=== PATIENT | male | born 1950 | race Caucasian/White ===

== ENCOUNTER 2018-09-01 07:05 | Emergency (ER) | END 2018-09-01 08:16 | disposition home or self-care (01) ==

== ENCOUNTER 2019-01-18 06:46 | Emergency (ER) | payer BC ==
[~2019-01-18] VITALS: Ht 162.6 cm; Wt 51.9 kg
[~2019-01-18 06:46] MED LIST: NAPR-985 PO
[2019-01-18 06:49] VITALS: Ht 162.6 cm; Wt 51.9 kg
[2019-01-18] MEDS ORDERED: CEPH-443 PO (07:27)
[2019-01-18] MEDS ORDERED: NAPR-985 PO (07:27)
--- NOTE | 2019-01-18 07:31 | ERD ---
ER Documentation Chief Complaint Chief Complaint right hand swelling x 2 months HPI 68-year-old male presents to the emergency department complaining of right hand swelling. Patient has had multiple episodes of a multifocal single joint arthritis including olecranon bursitis, toe and foot arthritis. He presents the emergency department complaining of 2 months of increasing swelling on his right hand. He denies localizing swelling only with no trauma. He reports no fevers, chills. He reports no systemic symptoms. ROS All systems reviewed and are negative except as per history of present illness. Medications Home Meds Active Scripts Cephalexin* (Keflex*) 500 Mg Capsule, 500 MG PO QID for 5 Days, CAP Prov:OCHOA,OBDULIO 01/18/19 Naproxen* (Naprosyn*) 500 Mg Tablet, 500 MG PO BID for 10 Days, #20 TAB Prov:OCHOA,OBDULIO 01/18/19 Naproxen* (Naprosyn*) 500 Mg Tablet, 500 MG PO BID PRN for PAIN AND/OR INFLAMMATION, #30 TAB Prov:PORSCHE SHAFER PA-C 09/01/18 Allergies Allergies: Coded Allergies: No Known Allergy (Unverified , 09/01/18) PMhx/Soc History of Surgery: Yes (RIGHT FOOT) Anesthesia Reaction: No Hx Alcohol Use: Yes (socially) Hx Substance Use: No Hx Tobacco Use: Yes Smoking Status: Current every day smoker FmHx Noncontributory for chief complaint Physical Exam Vitals Vital Signs Date Temp Pulse Resp B/P (MAP) Pulse Ox O2 O2 Flow FiO2 Time Delivery Rate 01/18/19 97.0 65 18 187/81 99 06:49 (116) Physical Exam General: Well-developed well-nourished in no distress Extremity: The right hand, the area of concern was examined in detail. Hand is swollen and erythematous there is some mild cellulitis on top of what appears to be generalized arthritis. There is no obvious trauma noted. Patient is neurovascularly intact. Normal tendon function is noted proximal and distal to the injury. No evidence of infection is noted. Compartments are soft and compressible. Skin is intact. Procedures/MDM Patient was taken to a room, seen and examined Medical decision makin-year-old male presents with a chronic, recurrent single joint arthritis. I suspect this is likely gout. I have no suspicion that this is septic in any way. We will be treating with anti-inflammatories. Patient does have a small area of cellulitis on top of the swelling that I will be treated with antibiotics, but again I do not believe this is a septic joint based on clinical presentation. Patient has been referred back to his primary care doctor for a complete evaluation for his overall arthritis. He has no other systemic concerns at this time to make me believe he has significant lupus or other high-risk concerns. Departure Diagnosis: Primary Impression: Arthritis Condition: Stable Patient Instructions: What Is Arthritis? Additional Instructions: Consulte a zendejas mdico para el seguimiento segn lo discutido. Lleve rayne copia de los resultados de zendejas prueba, si corresponde, a esta visita de seguimiento. Consulte a zendejas mdico o regrese aqu si haily sntomas no mejoran ynes se esperaba. En cualquier momento, regrese al departamento de emergencias por cualquier cambio o empeoramiento en haily sntomas. OBDULIO PACKER Jan 18, 2019 07:30
[2019-01-18 08:05] VITALS: BP 154/98; PULSE 76; RESP 19
== END 2019-01-18 08:06 | disposition home or self-care (01) ==
LOC: FTE 06:46
DX: M19.90 Unspecified osteoarthritis, unspecified site (principal); F17.210 Nicotine dependence, cigarettes, uncomplicated
CPT/HCPCS: 99283

== ENCOUNTER 2019-04-07 19:59 | Inpatient (IN) | payer BC ==
[~2019-04-07] VITALS: Ht 162.6 cm; Wt 52.0 kg
[~2019-04-07 19:59] MED LIST changes: +CEPH-443 PO
--- NOTE | 2019-04-07 20:40 | ERD ---
ER Documentation Chief Complaint Chief Complaint right sided weakness x 6 days, dx cva. admitted x 6 days at [facility]. signed ama HPI This is a 69-year-old male who presents for evaluation of right-sided weakness for about the last 7 days. He was admitted at [facility] where he states that he is signed out AMA. He is brought in from his family who states "they were not doing anything for my dad". They present only with AMA paperwork, as well as prescription for aspirin, Plavix and a statin. Patient denies any chest pain or shortness of breath, symptoms are constant, patient denies nausea or vomiting, no fever, he denies trauma. ROS All systems reviewed and are negative except as per history of present illness. Medications Home Meds Active Scripts Cephalexin* (Keflex*) 500 Mg Capsule, 500 MG PO QID for 5 Days, CAP Prov:OCHOA,OBDULIO 01/18/19 Naproxen* (Naprosyn*) 500 Mg Tablet, 500 MG PO BID for 10 Days, #20 TAB Prov:OCHOAOBDULIO 01/18/19 Naproxen* (Naprosyn*) 500 Mg Tablet, 500 MG PO BID PRN for PAIN AND/OR INFLAMMATION, #30 TAB Prov:PORSCHE SHAFER PA-C 09/01/18 Allergies Allergies: Coded Allergies: No Known Allergy (Unverified , 09/01/18) PMhx/Soc History of Surgery: Yes (RIGHT FOOT) Anesthesia Reaction: No Hx Alcohol Use: Yes (socially) Hx Substance Use: No Hx Tobacco Use: Yes Smoking Status: Never smoker Physical Exam Vitals Vital Signs Date Temp Pulse Resp B/P (MAP) Pulse Ox O2 O2 Flow FiO2 Time Delivery Rate 04/07/19 98.5 72 20 160/72 96 Room Air 20:23 (101) 04/07/19 Nasal 20:23 Cannula 04/07/19 98.5 74 20 156/74 96 20:11 (101) Physical Exam Const: Well-developed, well-nourished Head: Atraumatic Eyes: Normal Conjunctiva ENT: Normal External Ears, Nose and Mouth. Neck: Full range of motion. No meningismus. Resp: Clear to auscultation bilaterally Cardio: Regular rate and rhythm, no murmurs Abd: Soft, non tender, non distended. Normal bowel sounds Skin: No petechiae or rashes Back: No midline or flank tenderness Ext: No cyanosis, or edema Neur: Awake and alert, there is notable right upper and right lower extremity deficits. Patient is alert and oriented x4 Psych: Normal Mood and Affect Result Diagram: 04/07/19 2030 Results 24 hrs Laboratory Tests Test 04/07/19 20:30 04/07/19 21:24 White Blood Count 12.4 10^3/ul Red Blood Count 4.92 10^6/ul Hemoglobin 14.1 g/dl Hematocrit 42.6 % Mean Corpuscular Volume 86.6 fl Mean Corpuscular Hemoglobin 28.7 pg Mean Corpuscular Hemoglobin Concent 33.1 g/dl Red Cell Distribution Width 14.7 % Platelet Count 218 10^3/UL Mean Platelet Volume 9.9 fl Immature Granulocytes % 0.300 % Neutrophils % 73.4 % Lymphocytes % 14.8 % Monocytes % 10.8 % Eosinophils % 0.5 % Basophils % 0.2 % Nucleated Red Blood Cells % 0.0 /100WBC Immature Granulocytes # 0.040 10^3/ul Neutrophils # 9.1 10^3/ul Lymphocytes # 1.8 10^3/ul Monocytes # 1.3 10^3/ul Eosinophils # 0.1 10^3/ul Basophils # 0.0 10^3/ul Nucleated Red Blood Cells # 0.0 10^3/ul Prothrombin Time 13.3 Sec Prothrombin Time Ratio 1.0 INR International Normalized Ratio 1.00 Activated Partial Thromboplast Time 28.4 Sec Hemoglobin A1c 5.4 % POC Venous Lactate 0.8 mmol/L Current Medications Medications Dose Sig/Linda Start Time Status Last (Trade) Ordered Route PRN Stop Time Admin Dose Reason Admin Aspirin 325 mg ONCE STAT 04/07/19 DC 04/07/19 (Aspirin) PO 21:07 21:36 04/07/19 21:11 IV Flush 3 ml PER 04/07/19 (NS 3 ml) PROTOCOL IV 21:30 Ondansetron 4 mg Q6H PRN 04/07/19 HCl (Zofran IV 21:30 Inj) NAUSEA/VOMITI NG 650 mg Q6H PRN 04/07/19 Acetaminophen PO .PAIN 1-3 21:30 (Tylenol OR TEMP Tab) Morphine 2 mg Q4H PRN 04/07/19 Sulfate IV .PAIN 21:30 (morphine) 7-10 Famotidine 20 mg Q12 IV 04/08/19 (Pepcid Iv) 09:00 [place] [address] Radiology Main Line: [phone] DIAGNOSTIC IMAGING REPORT Patient: JOSÉ MANUEL CHAIREZ : 1950 Age: 69 Sex: M MR #: [id number] DOS: 04/07/192020 Ordering MD: NBA SIMONS MD Location: E/R Room/Bed: PROCEDURE: CT Brain without contrast. CLINICAL INDICATION: Focal neurological deficit. TECHNIQUE: A CT of the brain was performed on a multislice detector CT scanner utilizing axial sections from the skull base through the vertex without contrast. Images were reviewed on a high-resolution PACS workstation. Exam CTDlvol = 39 mGy and DLP = 634 mGy-cm. One of the following 3 dose reduction techniques were used: Automated exposure control; adjustment of the mA and/or kV according to patient size; or use of iterative reconstruction technique. DICOM images are available. COMPARISON: None available FINDINGS: There is age appropriate central and peripheral atrophy. There are atherosclerotic calcifications of the cavernous and supraclinoid internal carotid arteries. There is no midline shift. There is a moderate degree of supratentorial periventricular and subcortical white matter hypodensities. There is no definite acute stroke. There is an old left frontal parasagittal infarct. There are multiple scattered punctate parenchymal calcifications including the right caudate head and bilateral occipital lobes. There is no intracranial hemorrhage or abnormal extra-axial fluid collection. Visualized paranasal sinuses are clear. IMPRESSION: 1. No acute intracranial stroke or hemorrhage. 2. Old left frontal infarct. 3. Nonspecific white matter changes most commonly seen with microvascular ischemic disease. 4. Scattered parenchymal calcifications most commonly seen post inflammatory/infectious such as neurocysticercosis. Findings reported to Dr. Simons on 04/07/2019 9:00:55 PM. RPTAT: HMVK .Jimbo Chadwick MD, MD Date Time Electronically viewed and signed by .Jimbo Chadwick MD, MD on 04/07/2019 21:03 .K/ CC: NBA SIMONS MD [phone] Procedures/MDM This is a 69-year-old male who presents for evaluation of what sounds to be an ischemic stroke that have been now more than 7 days ago, he left AMA, I am not clear on what the plan of care with her current stage of his treatment was, as he was he will be admitted for further work-up. 9:10 PM: CT brain shows old left-sided infarct. Case was discussed with Dr. Hallman, will be admitted to Dr. Bard scott. CTA ordered. Accepting Care Team: Current data and ongoing care discussed. Primary: Jonathan Consulting: None Outstanding Data: none EKG: Rate/Rhythm: Normal Sinus Rhythm QRS, ST, T-waves: No changes consistent w/ acute ischemia Impression: No evidence of ischemia or arrhythmia 9:59 PM: I reviewed outside records, apparently patient had been awaiting MRI, echo showed a preserved ejection fraction, patient symptoms have remained stable. Departure Diagnosis: Primary Impression: Acute weakness Additional Impression: Stroke CVA mechanism: unspecified Qualified Codes: I63.9 - Cerebral infarction, unspecified Condition: Stable NBA SIMONS MD April 07, 2019 20:40
[2019-04-07] MEDS ORDERED: ASPIRIN 325 MG TAB PO STA (21:07)
[2019-04-07] MEDS ORDERED: NACL 0.9% 3 ML SYG IV SCH (21:30)
[2019-04-07] MEDS ORDERED: ONDANSETRON 4 MG INJ IV PRN (21:30)
[2019-04-07] MEDS ORDERED: ACETAMINOPHEN 325 MG TAB PO PRN (21:30)
[2019-04-07] MEDS ORDERED: SOD CHLORIDE 0.9% 100 ML ONE (22:28)
[2019-04-07] MEDS ORDERED: IOHEXOL 100 ML ONE (22:28)
[2019-04-07 22:42] VITALS: PULSE 73
[2019-04-07 23:41] VITALS: BP 147/76; PULSE 76; RESP 18
[2019-04-08] VITALS (11 sets, daily range): BP systolic 119–157; BP diastolic 58–74; PULSE 61–87; RESP 17–18; Ht 162.6 cm; Wt 52.0 kg
[2019-04-08] MEDS: FAMOTIDINE 20 MG INJ IV SCH ×2 (08:31→21:05)
--- NOTE | 2019-04-08 11:07 | HP ---
Date/Time of Note Date/Time of Note DATE: 04/08/19 TIME: 11:04 Assessment/Plan VTE Prophylaxis Risk score (from Ns)>0 risk: 4 SCD applied (from Ns): Yes Pharmacological prophylaxis: LMWH Lines/Catheters IV [facility]from [facility] Saline Lock Assessment/Plan Hospital Course 1) possible CVA - head MRI - consult neurology Result Diagram: 04/08/19 0517 04/08/19 0517 Results 24hrs Laboratory Tests Test 04/07/19 20:30 04/07/19 21:24 04/08/19 05:17 White Blood Count 12.4 H 8.1 # Red Blood Count 4.92 4.84 Hemoglobin 14.1 13.8 L Hematocrit 42.6 41.9 L Mean Corpuscular Volume 86.6 86.6 Mean Corpuscular Hemoglobin 28.7 L 28.5 L Mean Corpuscular Hemoglobin Concent 33.1 32.9 Red Cell Distribution Width 14.7 H 14.9 H Platelet Count 218 209 Mean Platelet Volume 9.9 10.3 Immature Granulocytes % 0.300 0.400 Neutrophils % 73.4 65.6 Lymphocytes % 14.8 L 21.0 Monocytes % 10.8 12.2 H Eosinophils % 0.5 0.6 Basophils % 0.2 0.2 Nucleated Red Blood Cells % 0.0 0.0 Immature Granulocytes # 0.040 H 0.030 Neutrophils # 9.1 H 5.3 Lymphocytes # 1.8 1.7 Monocytes # 1.3 H 1.0 H Eosinophils # 0.1 0.1 Basophils # 0.0 0.0 Nucleated Red Blood Cells # 0.0 0.0 Prothrombin Time 13.3 Prothrombin Time Ratio 1.0 INR International Normalized Ratio 1.00 Activated Partial Thromboplast Time 28.4 Sodium Level 136 138 Potassium Level 4.3 4.2 Chloride Level 102 103 Carbon Dioxide Level 24 26 Anion Gap 10 9 Blood Urea Nitrogen 18 17 Creatinine 0.68 0.64 Est Glomerular Filtrat Rate mL/min > 60 > 60 Glucose Level 127 114 Hemoglobin A1c 5.4 5.3 Calcium Level 9.2 9.0 Troponin I < 0.012 Triglycerides Level 102 Cholesterol Level 180 LDL Cholesterol, Calculated 87 HDL Cholesterol 73 Cholesterol/HDL Ratio 2.4 POC Venous Lactate 0.8 Total Bilirubin 1.0 Direct Bilirubin 0.00 Indirect Bilirubin 1.0 Aspartate Amino Transf (AST/SGOT) 32 Alanine Aminotransferase (ALT/SGPT) 28 Alkaline Phosphatase 59 Total Protein 7.4 Albumin 3.9 Globulin 3.50 H Albumin/Globulin Ratio 1.11 HPI/ROS Admit Date/Time Admit Date/Time April 07, 2019 at 21:07 Hx of Present Illness Patient without medical problems comes to the [facility] emergency room after signing out AMA at [facility]. Patient was admitted at [place] 7 days ago with right sided weakness. Patient had head CT and echocardiogram which was negative and family bacame frustrated and so they brought him here. PMH/Family/Social Past Medical History Medications Current Medications IV Flush (NS 3 ml) 3 ml PER PROTOCOL IV ; Start 04/07/19 at 21:30 Ondansetron HCl (Zofran Inj) 4 mg Q6H PRN IV NAUSEA/VOMITING; Start 04/07/19 at 21:30 Acetaminophen (Tylenol Tab) 650 mg Q6H PRN PO .PAIN 1-3 OR TEMP; Start 04/07/19 at 21:30 Morphine Sulfate (morphine) 2 mg Q4H PRN IV .PAIN 7-10; Start 04/07/19 at 21:30 Famotidine (Pepcid Iv) 20 mg Q12 IV Last administered on 04/08/19at 08:31; Admin Dose 20 MG; Start 04/08/19 at 09:00 Coded Allergies: No Known Allergy (Unverified , 09/01/18) Social History Smoking Status: Former smoker Exam/Review of Systems Vital Signs Vitals Vital Signs Date Temp Pulse Resp B/P (MAP) Pulse Ox O2 O2 Flow FiO2 Time Delivery Rate 04/08/19 85 08:04 04/08/19 99.2 18 122/58 96 07:15 (79) 04/07/19 Room Air 22:03 Intake and Output 04/07/19 04/07/19 04/08/19 1515:00 23:00 07:00 IntakeIntake Total 500 ml OutputOutput Total 300 ml BalanceBalance 200 ml Exam Constitutional: well developed Head: normocephalic, atraumatic Neck: supple Respiratory: diminished breath sounds Cardiovascular: regular rate and rhythm Gastrointestinal: soft, non-tender Extremities: normal pulses FARRAH PEÑA Apr 08, 2019 11:07
[2019-04-08] MEDS ORDERED: SOD CHLORIDE 0.9% 100 ML ONE (23:33)
[2019-04-08] MEDS ORDERED: IOHEXOL 100 ML ONE (23:33)
[2019-04-09] VITALS (12 sets, daily range): BP systolic 127–145; BP diastolic 67–73; PULSE 48–98; RESP 16–20
[2019-04-09] MEDS: FAMOTIDINE 20 MG INJ IV SCH ×2 (09:18→20:59)
--- NOTE | 2019-04-09 10:25 | PN ---
Date/Time of Note Date/Time of Note DATE: 04/09/19 TIME: 10:24 Assessment/Plan VTE Prophylaxis Risk score (from Nsg)>0 risk: 3 SCD applied (from Nsg): Yes Pharmacological prophylaxis: LMWH Lines/Catheters IV Catheter Type (from Nrsg): Saline Lock Assessment/Plan Hospital Course 1) possible CVA - head MRI show no evidence of CVA - consult neurology Result Diagram: 04/08/19 0517 04/08/19 0517 Results 24hrs Laboratory Tests Test 04/09/19 05:19 Triglycerides Level 84 Cholesterol Level 144 LDL Cholesterol, Calculated 70 HDL Cholesterol 57 # Cholesterol/HDL Ratio 2.5 Subjective 24 Hr Interval Summary Free Text/Dictation Patient continues to have weakness on right side of body Exam/Review of Systems Exam Vitals Vital Signs Date Temp Pulse Resp B/P (MAP) Pulse Ox O2 O2 Flow FiO2 Time Delivery Rate 04/09/19 76 08:04 04/09/19 98.0 18 142/73 98 07:48 (96) 04/07/19 Room Air 22:03 Intake and Output 04/08/19 04/08/19 04/09/19 1515:00 23:00 07:00 IntakeIntake Total 450 ml 480 ml OutputOutput Total 850 ml 800 ml BalanceBalance -400 ml -320 ml Constitutional: well developed Head: normocephalic, atraumatic Neck: supple Respiratory: diminished breath sounds Cardiovascular: regular rate and rhythm Gastrointestinal: soft, non-tender Extremities: normal pulses Results Results 24hrs Laboratory Tests Test 04/09/19 05:19 Triglycerides Level 84 Cholesterol Level 144 LDL Cholesterol, Calculated 70 HDL Cholesterol 57 # Cholesterol/HDL Ratio 2.5 Medications Medication Current Medications IV Flush (NS 3 ml) 3 ml PER PROTOCOL IV ; Start 04/07/19 at 21:30 Ondansetron HCl (Zofran Inj) 4 mg Q6H PRN IV NAUSEA/VOMITING; Start 04/07/19 at 21:30 Acetaminophen (Tylenol Tab) 650 mg Q6H PRN PO .PAIN 1-3 OR TEMP; Start 04/07/19 at 21:30 Morphine Sulfate (morphine) 2 mg Q4H PRN IV .PAIN 7-10; Start 04/07/19 at 21:30 Famotidine (Pepcid Iv) 20 mg Q12 IV Last administered on 04/09/19at 09:18; Admin Dose 20 MG; Start 04/08/19 at 09:00 FARRAH PEÑA Apr 09, 2019 10:25
[2019-04-09] MEDS: morphine 2 MG INJ IV PRN (17:39)
[2019-04-10] VITALS (10 sets, daily range): BP systolic 122–145; BP diastolic 61–81; PULSE 61–82; RESP 18–19
[2019-04-10] MEDS: FAMOTIDINE 20 MG INJ IV SCH (09:26)
--- NOTE | 2019-04-10 14:19 | PN ---
Date/Time of Note Date/Time of Note DATE: 04/10/19 TIME: 13:59 Assessment/Plan VTE Prophylaxis Risk score (from Ns)>0 risk: 6 SCD applied (from Nsg): Yes Pharmacological prophylaxis: LMWH Lines/Catheters IV C[facility] Type (from [facility] Saline Lock Assessment/Plan Hospital Course Patient is a 69-year-old male with new onset of right-sided weakness currently complains of right-sided pain patient is awake alert. Patient's condition and plan of care discussed with patient daughter and granddaughter at the bedside. Assessment/Plan -Acute stroke new onset of unilateral weakness. PT OT and speech therapy to eval, start aspirin. Dr. Lim is asked to see patient in neurology consultati on. 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 Turk is asked to see patient in vascular surgery consultation. Further recommendations based on clinical course. Plan of care discussed with Dr. Castillo. Result Diagram: 04/08/1951604/08/19516 Exam/Review of Systems Exam Vitals Vital Signs Date Temp Pulse Resp B/P (MAP) Pulse Ox O2 O2 Flow FiO2 Time Delivery Rate 04/10/19 66 12:00 04/10/19 98.0 18 122/68 97 07:22 (86) 04/07/19 Room Air 22:03 Intake and Output 04/09/19 04/09/19 04/10/19 1515:00 23:00 07:00 IntakeIntake Total 800 ml 380 ml OutputOutput Total 800 ml 1200 ml BalanceBalance 0 ml -820 ml Constitutional: alert, oriented Head: normocephalic Neck: supple Cardiovascular: regular rate and rhythm Gastrointestinal: soft, non-tender Musculoskeletal: other (Right upper and lower extremity weakness) Extremities: normal pulses Neurological: nl mental status, other Medications Medication Current Medications IV Flush (NS 3 ml) 3 ml PER PROTOCOL IV ; Start 04/07/19 at 21:30 Ondansetron HCl (Zofran Inj) 4 mg Q6H PRN IV NAUSEA/VOMITING; Start 04/07/19 at 21:30 Acetaminophen (Tylenol Tab) 650 mg Q6H PRN PO .PAIN 1-3 OR TEMP; Start 04/07/19 at 21:30 Morphine Sulfate (morphine) 2 mg Q4H PRN IV .PAIN 7-10 Last administered on 04/09/19at 17:39; Admin Dose 2 MG; Start 04/07/19 at 21:30 Famotidine (Pepcid Iv) 20 mg Q12 IV Last administered on 04/10/19at 09:26; Admin Dose 20 MG; Start 04/08/19 at 09:00 AINSLEY NAVARRO Apr 10, 2019 14:09
--- NOTE | 2019-04-10 14:37 | CONS ---
Consultation Date/Type/Reason Admit Date/Time April 07, 2019 at 21:07 Type of Consult Neurology Date/Time of Note DATE: 04/10/19 TIME: 14:37 Exam/Review of Systems Exam Vitals Vital Signs Date Temp Pulse Resp B/P (MAP) Pulse Ox O2 O2 Flow FiO2 Time Delivery Rate 04/10/19 98.0 66 18 135/73 97 12:30 (93) 04/07/19 Room Air 22:03 Intake and Output 04/09/19 04/09/19 04/10/19 1515:00 23:00 07:00 IntakeIntake Total 800 ml 380 ml OutputOutput Total 800 ml 1200 ml BalanceBalance 0 ml -820 ml Results Result Diagram: 04/08/1951604/08/19 05 Medications Medication Current Medications IV Flush (NS 3 ml) 3 ml PER PROTOCOL IV ; Start 04/07/19 at 21:30 Ondansetron HCl (Zofran Inj) 4 mg Q6H PRN IV NAUSEA/VOMITING; Start 04/07/19 at 21:30 Acetaminophen (Tylenol Tab) 650 mg Q6H PRN PO .PAIN 1-3 OR TEMP; Start 04/07/19 at 21:30 Morphine Sulfate (morphine) 2 mg Q4H PRN IV .PAIN 7-10 Last administered on 04/09/19at 17:39; Admin Dose 2 MG; Start 04/07/19 at 21:30 Aspirin (Halfprin) 81 mg DAILY PO ; Start 04/10/19 at 14:00 Famotidine (Pepcid) 20 mg Q12 PO ; Start 04/10/19 at 21:00 Past Medical History Home Meds Active Scripts Cephalexin* (Keflex*) 500 Mg Capsule, 500 MG PO QID for 5 Days, CAP Prov:XUAN PACKERSON 01/18/19 Naproxen* (Naprosyn*) 500 Mg Tablet, 500 MG PO BID for 10 Days, #20 TAB Prov:OBDULIO PACKER 01/18/19 Naproxen* (Naprosyn*) 500 Mg Tablet, 500 MG PO BID PRN for PAIN AND/OR INFLAMMATION, #30 TAB Prov:PORSCHE SHAFER PA-C 09/01/18 Medications Current Medications IV Flush (NS 3 ml) 3 ml PER PROTOCOL IV ; Start 04/07/19 at 21:30 Ondansetron HCl (Zofran Inj) 4 mg Q6H PRN IV NAUSEA/VOMITING; Start 04/07/19 at 21:30 Acetaminophen (Tylenol Tab) 650 mg Q6H PRN PO .PAIN 1-3 OR TEMP; Start 04/07/19 at 21:30 Morphine Sulfate (morphine) 2 mg Q4H PRN IV .PAIN 7-10 Last administered on 04/09/19at 17:39; Admin Dose 2 MG; Start 04/07/19 at 21:30 Aspirin (Halfprin) 81 mg DAILY PO ; Start 04/10/19 at 14:00 Famotidine (Pepcid) 20 mg Q12 PO ; Start 04/10/19 at 21:00 Allergies: Coded Allergies: No Known Allergy (Unverified , 09/01/18) Social History Smoking Status: Former smoker CONNER MILLS NP Apr 10, 2019 14:37
--- NOTE | 2019-04-10 14:39 | CONSI ---
Assessment/Plan Assessment/Plan Assessment/Plan (Recall) 69 yo M with no reported PMH who presents for evaluation of R sided weakness x 6 days... for which neurology is consulted. The clinical picture is most consistent with stroke. CTH is unrevealing. 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 P: Await MRI brain for further characterization Cont ASA for stroke prevention; LDL is at goal Add UDS, ESR, RPR BP and other medical management per primary PT/OT as necessary Will follow clinically, to recommend neurologic studies, as necessary Consultation Date/Type/Reason Admit Date/Time April 07, 2019 at 21:07 Type of Consult Neurology Reason for Consultation R sided weakness Requesting Provider: AINSLEY NAVARRO Date/Time of Note DATE: 04/10/19 TIME: 14:39 Hx of Present Illness The pt is currently a limited historian. He endorses R sided weakness. It is additionally elsewhere noted: Chief Complaint right sided weakness x 6 days, dx cva. admitted x 6 days at [facility]. signed ama HPI This is a 69-year-old male who presents for evaluation of right-sided weakness for about the last 7 days. He was admitted at [facility] where he states that he is signed out AMA. He is brought in from his family who states "they were not doing anything for my dad". They present only with AMA paperwork, as well as prescription for aspirin, Plavix and a statin. Patient denies any chest pain or shortness of breath, symptoms are constant, patient denies nausea or vomiting, no fever, he denies trauma. negative unless noted otherwise in HPI Objective Exam Vitals Vital Signs Date Temp Pulse Resp B/P (MAP) Pulse Ox O2 O2 Flow FiO2 Time Delivery Rate 04/10/19 98.0 66 18 135/73 97 12:30 (93) 04/07/19 Room Air 22:03 Intake and Output 04/09/19 04/09/19 04/10/19 1515:00 23:00 07:00 IntakeIntake Total 800 ml 380 ml OutputOutput Total 800 ml 1200 ml BalanceBalance 0 ml -820 ml Exam PE: Gen Appearance: No Apparent Distress HEENT: Normocephalic Cardiovascular: Regular rate Lungs: Clear bilaterally Abdomen: Soft Extremities: Dry NE: The patient was alert and oriented to self and place.. Language was normal. Fund of knowledge was limited. Pupils were equal and reactive to light. There was no afferent pupillary defect. Visual porter were normal. Funduscopic examination was limited. Extra-ocular movements were full. Ptosis was absent. There was no nystagmus. Facial sensation was normal. Face was symmetric with normal strength. Hearing was intact. Palate movements were normal. Neck strength was normal. There was normal tongue bulk and speed of movement. Tone was normal. Muscle bulk was normal. I did not see fasciculations. Arms and legs were weak on the R. Vibration sensation was normal. Temperature and pinprick sensation was normal. Rapid alternating movements were normal. There was no dysmetria. There was no intention tremor. Gait was deferred due to bedrest. Arm and leg reflexes were 2+ and symmetric. Reddy's sign was absent. Plantar responses were flexor. Results Result Diagram: 04/08/1951604/08/19516 Past Medical History reviewed Home Meds Active Scripts Cephalexin* (Keflex*) 500 Mg Capsule, 500 MG PO QID for 5 Days, CAP Prov:OBDULIO PACKER 01/18/19 Naproxen* (Naprosyn*) 500 Mg Tablet, 500 MG PO BID for 10 Days, #20 TAB Prov:OBDULIO PACKER 01/18/19 Naproxen* (Naprosyn*) 500 Mg Tablet, 500 MG PO BID PRN for PAIN AND/OR INFLA MMATION, #30 TAB Prov:PORSCHE SHAFER PA-C 09/01/18 Medications Current Medications IV Flush (NS 3 ml) 3 ml PER PROTOCOL IV ; Start 04/07/19 at 21:30 Ondansetron HCl (Zofran Inj) 4 mg Q6H PRN IV NAUSEA/VOMITING; Start 04/07/19 at 21:30 Acetaminophen (Tylenol Tab) 650 mg Q6H PRN PO .PAIN 1-3 OR TEMP; Start 04/07/19 at 21:30 Morphine Sulfate (morphine) 2 mg Q4H PRN IV .PAIN 7-10 Last administered on 04/09/19at 17:39; Admin Dose 2 MG; Start 04/07/19 at 21:30 Aspirin (Halfprin) 81 mg DAILY PO ; Start 04/10/19 at 14:00 Famotidine (Pepcid) 20 mg Q12 PO ; Start 04/10/19 at 21:00 Allergies: Coded Allergies: No Known Allergy (Unverified , 09/01/18) Past Surgical History reviewed Social History reviewed Smoking Status: Former smoker CONNER MILLS NP Apr 10, 2019 14:39 TJ ANDERSON Apr 10, 2019 21:01
[2019-04-10] MEDS: ASPIRIN (EC) 81 MG TAB PO SCH (16:50)
[2019-04-10] MEDS: FAMOTIDINE 20 MG TAB PO SCH (20:11)
[2019-04-11] VITALS (11 sets, daily range): BP systolic 112–145; BP diastolic 58–99; PULSE 56–91; RESP 16–18
[2019-04-11] MEDS: morphine 2 MG INJ IV PRN ×2 (05:58→21:45)
[2019-04-11] MEDS: ASPIRIN (EC) 81 MG TAB PO SCH (08:26)
[2019-04-11] MEDS: FAMOTIDINE 20 MG TAB PO SCH ×2 (08:26→20:05)
--- NOTE | 2019-04-11 14:55 | CONS ---
Assessment/Plan Assessment/Plan Assessment/Plan (Recall) 69 yo M with no reported PMH who presents for evaluation of R sided weakness x 6 days, concerning for acute stroke... for which neurology is consulted. MRI brain confirms acute ischemia in the medial L frontal/parietal lobes. 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 ESR 24, RPR neg, UDS neg P: Cont ASA for stroke prevention; LDL is at goal BP and other medical management per primary PT/OT as necessary Will follow clinically, to recommend neurologic studies, as necessary Consultation Date/Type/Reason Admit Date/Time April 07, 2019 at 21:07 Type of Consult Neurology Reason for Consultation R sided weakness Requesting Provider: AINSLEY NAVARRO Date/Time of Note DATE: 04/11/19 TIME: 14:55 24 HR Interval Summary Free Text/Dictation Continues acute care. S/p MRI Exam/Review of Systems Exam Vitals Vital Signs Date Temp Pulse Resp B/P (MAP) Pulse Ox O2 O2 Flow FiO2 Time Delivery Rate 04/11/19 97.0 87 18 133/70 98 12:27 (91) 04/07/19 Room Air 22:03 Intake and Output 04/10/19 04/10/19 04/11/19 1515:00 23:00 07:00 IntakeIntake Total 800 ml OutputOutput Total 1200 ml BalanceBalance -400 ml Exam PE: Gen Appearance: No Apparent Distress HEENT: Normocephalic Cardiovascular: Regular rate Lungs: Clear bilaterally Abdomen: Soft Extremities: Dry NE: The patient was alert and oriented to self and place.. Language was normal. Fund of knowledge was limited. Pupils were equal and reactive to light. There was no afferent pupillary defect. Visual porter were normal. Funduscopic examination was limited. Extra-ocular movements were full. Ptosis was absent. There was no nystagmus. Facial sensation was normal. Face was symmetric with normal strength. Hearing was intact. Palate movements were normal. Neck strength was normal. There was normal tongue bulk and speed of movement. Tone was normal. Muscle bulk was normal. I did not see fasciculations. Arms and legs were mildly weak on the R. Vibration sensation was normal. Temperature and pinprick sensation was normal. Rapid alternating movements were normal. There was no dysmetria. There was no intention tremor. Gait was deferred due to bedrest. Arm and leg reflexes were 2+ and symmetric. Reddy's sign was absent. Plantar responses were flexor. Results Result Diagram: 04/08/1951604/08/19516 Results 24hrs Laboratory Tests Test 04/10/19 22:05 04/11/19 05:21 Urine Color YELLOW Urine Clarity TURBID A Urine pH 9.0 Urine Specific [place] 1.019 Urine Ketones NEGATIVE Urine Nitrite NEGATIVE Urine Bilirubin NEGATIVE Urine Urobilinogen NEGATIVE Urine Leukocyte Esterase NEGATIVE Urine Microscopic RBC 0 Urine Microscopic WBC 4 Urine Squamous Epithelial Cells FEW Urine Amorphous Crystals FEW A Urine Bacteria FEW A Urine Mucus FEW A Urine Hemoglobin NEGATIVE Urine Glucose NEGATIVE Urine Total Protein NEGATIVE Urine Opiates Screen NEGATIVE Urine Barbiturates NEGATIVE Urine Amphetamines Screen NEGATIVE Urine Benzodiazepines Screen NEGATIVE Urine Cocaine Screen NEGATIVE Urine Cannabinoids NEGATIVE Erythrocyte Sedimentation Rate 24 H Medications Medication Current Medications IV Flush (NS 3 ml) 3 ml PER PROTOCOL IV ; Start 04/07/19 at 21:30 Ondansetron HCl (Zofran Inj) 4 mg Q6H PRN IV NAUSEA/VOMITING; Start 04/07/19 at 21:30 Acetaminophen (Tylenol Tab) 650 mg Q6H PRN PO .PAIN 1-3 OR TEMP; Start 04/07/19 at 21:30 Morphine Sulfate (morphine) 2 mg Q4H PRN IV .PAIN 7-10 Last administered on 04/11/19at 05:58; Admin Dose 2 MG; Start 04/07/19 at 21:30 Aspirin (Halfprin) 81 mg DAILY PO Last administered on 04/11/19 08:26; Admin Dose 81 MG; Start 04/10/19 at 14:00 Famotidine (Pepcid) 20 mg Q12 PO Last administered on 04/11/19 08:26; Admin Dose 20 MG; Start 04/10/19 at 21:00 CONNER MILLS NP Apr 11, 2019 14:55 TJ ANDERSON Apr 11, 2019 19:51
--- NOTE | 2019-04-11 19:24 | PN ---
Date/Time of Note Date/Time of Note DATE: 04/11/19 TIME: 19:24 Assessment/Plan VTE Prophylaxis Risk score (from Nsg)>0 risk: 4 SCD applied (from Nsg): Yes Lines/Catheters IV Catheter Type (from Nrsg): Saline Lock Assessment/Plan Hospital Course Patient is a 69-year-old male with new onset of right-sided weakness currently complains of right-sided pain patient is awake alert. Patient's condition and plan of care discussed with patient daughter and granddaughter at the bedside. Assessment/Plan -Acute stroke new onset of unilateral weakness. PT OT and speech therapy to eval, start aspirin. Dr. Lim is asked to see patient in neurology consultation. 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 Turk is asked to see patient in vascular surgery consultation. Further recommendations based on clinical course. Plan of care discussed with Dr. Castillo. Result Diagram: 04/08/1917 04/08/1917 Results 24hrs Laboratory Tests Test 04/10/19 22:05 04/11/19 05:21 Urine Color YELLOW Urine Clarity TURBID A Urine pH 9.0 Urine Specific [place] 1.019 Urine Ketones NEGATIVE Urine Nitrite NEGATIVE Urine Bilirubin NEGATIVE Urine Urobilinogen NEGATIVE Urine Leukocyte Esterase NEGATIVE Urine Microscopic RBC 0 Urine Microscopic WBC 4 Urine Squamous Epithelial Cells FEW Urine Amorphous Crystals FEW A Urine Bacteria FEW A Urine Mucus FEW A Urine Hemoglobin NEGATIVE Urine Glucose NEGATIVE Urine Total Protein NEGATIVE Urine Opiates Screen NEGATIVE Urine Barbiturates NEGATIVE Urine Amphetamines Screen NEGATIVE Urine Benzodiazepines Screen NEGATIVE Urine Cocaine Screen NEGATIVE Urine Cannabinoids NEGATIVE Erythrocyte Sedimentation Rate 24 H Rapid Plasma Reagin NONREACTIVE Exam/Review of Systems Exam Vitals Vital Signs Date Temp Pulse Resp B/P (MAP) Pulse Ox O2 O2 Flow FiO2 Time Delivery Rate 04/11/19 82 16:51 04/11/19 98.0 18 145/99 98 15:42 (114) 04/07/19 Room Air 22:03 Intake and Output 04/10/19 04/10/19 04/11/19 1515:00 23:00 07:00 IntakeIntake Total 800 ml OutputOutput Total 1200 ml BalanceBalance -400 ml Results Results 24hrs Laboratory Tests Test 04/10/19 22:05 04/11/19 05:21 Urine Color YELLOW Urine Clarity TURBID A Urine pH 9.0 Urine Specific [place] 1.019 Urine Ketones NEGATIVE Urine Nitrite NEGATIVE Urine Bilirubin NEGATIVE Urine Urobilinogen NEGATIVE Urine Leukocyte Esterase NEGATIVE Urine Microscopic RBC 0 Urine Microscopic WBC 4 Urine Squamous Epithelial Cells FEW Urine Amorphous Crystals FEW A Urine Bacteria FEW A Urine Mucus FEW A Urine Hemoglobin NEGATIVE Urine Glucose NEGATIVE Urine Total Protein NEGATIVE Urine Opiates Screen NEGATIVE Urine Barbiturates NEGATIVE Urine Amphetamines Screen NEGATIVE Urine Benzodiazepines Screen NEGATIVE Urine Cocaine Screen NEGATIVE Urine Cannabinoids NEGATIVE Erythrocyte Sedimentation Rate 24 H Rapid Plasma Reagin NONREACTIVE Medications Medication Current Medications IV Flush (NS 3 ml) 3 ml PER PROTOCOL IV ; Start 04/07/19 at 21:30 Ondansetron HCl (Zofran Inj) 4 mg Q6H PRN IV NAUSEA/VOMITING; Start 04/07/19 at 21:30 Acetaminophen (Tylenol Tab) 650 mg Q6H PRN PO .PAIN 1-3 OR TEMP; Start 04/07/19 at 21:30 Morphine Sulfate (morphine) 2 mg Q4H PRN IV .PAIN 7-10 Last administered on 04/11/19at 05:58; Admin Dose 2 MG; Start 04/07/19 at 21:30 Aspirin (Halfprin) 81 mg DAILY PO Last administered on 04/11/19 08:26; Admin Dose 81 MG; Start 04/10/19 at 14:00 Famotidine (Pepcid) 20 mg Q12 PO Last administered on 04/11/19 08:26; Admin Dose 20 MG; Start 04/10/19 at 21:00 AINSLEY NAVARRO Apr 11, 2019 19:24
--- NOTE | 2019-04-11 22:16 | PN ---
Date/Time of Note Date/Time of Note DATE: 04/11/19 TIME: 22:15 Assessment/Plan Lines/Catheters IV Catheter Type (from Nrs): Saline Lock Assessment/Plan Chief Complaint/Hosp Course No vascular intervention needed. Can follow as outpt. Will need to be on dual antiplatelet therapy Subjective 24 Hr Interval Summary Constitutional: no complaints Exam/Review of Systems Vital Signs Vitals Vital Signs Date Temp Pulse Resp B/P (MAP) Pulse Ox O2 O2 Flow FiO2 Time Delivery Rate 04/12/19 98.8 75 18 128/76 98 Room Air 07:24 (93) Intake and Output 04/11/19 04/11/19 04/12/19 1515:00 23:00 07:00 IntakeIntake Total 600 ml 700 ml 600 ml OutputOutput Total 800 ml 1000 ml 1000 ml BalanceBalance -200 ml -300 ml -400 ml Exam Constitutional: alert, oriented Psych: no complaints Head: normocephalic, atraumatic Eyes: EOMI Neck: supple, non-tender Respiratory: clear to auscultation, normal air movement Cardiovascular: regular rate and rhythm, nl pulses Gastrointestinal: soft, nl liver, spleen, non-tender Musculoskeletal: other (right sided weakness motor3-4/5) Results Result Diagram: 04/08/1917 04/08/19 0517 KING MACDONALD MD Apr 11, 2019 22:16
--- NOTE | 2019-04-11 22:45 | PN ---
Date/Time of Note Date/Time of Note DATE: 04/11/19 TIME: 22:36 Assessment/Plan VTE Prophylaxis Risk score (from Nsg)>0 risk: 4 SCD applied (from Nsg): Yes Pharmacological prophylaxis: other Lines/Catheters IV Catheter Type (from Nrsg): Saline Lock Assessment/Plan Hospital Course No acute events, stable VS, ARU eval Assessment/Plan -Acute stroke with new onset of R sided weakness. Acute infarct in the left frontal and parietal lobes per MRI. Continue aspirin. PT OT. Dr. Lim is fol lowing in neurology. ARU eval. consultation. 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 Turk is asked to see pt in vascular surgery consultation. Further recommendations based on clinical course. Plan of care discussed with Dr. Castillo. Result Diagram: 04/08/1951604/08/1917 Results 24hrs Laboratory Tests Test 04/11/19 05:21 Erythrocyte Sedimentation Rate 24 H Rapid Plasma Reagin NONREACTIVE Exam/Review of Systems Exam Vitals Vital Signs Date Temp Pulse Resp B/P (MAP) Pulse Ox O2 O2 Flow FiO2 Time Delivery Rate 04/11/19 98.9 79 18 118/61 94 20:00 (80) 04/07/19 Room Air 22:03 Intake and Output 04/10/19 04/10/19 04/11/19 1515:00 23:00 07:00 IntakeIntake Total 800 ml OutputOutput Total 1200 ml BalanceBalance -400 ml Exam Constitutional: alert, oriented Head: normocephalic Neck: supple Cardiovascular: regular rate and rhythm Gastrointestinal: soft, non-tender Musculoskeletal: other (Right upper and lower extremity weakness) Extremities: normal pulses Neurological: nl mental status, other Results Results 24hrs Laboratory Tests Test 04/11/19 05:21 Erythrocyte Sedimentation Rate 24 H Rapid Plasma Reagin NONREACTIVE Medications Medication Current Medications IV Flush (NS 3 ml) 3 ml PER PROTOCOL IV ; Start 04/07/19 at 21:30 Ondansetron HCl (Zofran Inj) 4 mg Q6H PRN IV NAUSEA/VOMITING; Start 04/07/19 at 21:30 Acetaminophen (Tylenol Tab) 650 mg Q6H PRN PO .PAIN 1-3 OR TEMP; Start 04/07/19 at 21:30 Morphine Sulfate (morphine) 2 mg Q4H PRN IV .PAIN 7-10 Last administered on 04/11/19at 21:45; Admin Dose 2 MG; Start 04/07/19 at 21:30 Aspirin (Halfprin) 81 mg DAILY PO Last administered on 04/11/19 08:26; Admin Dose 81 MG; Start 04/10/19 at 14:00 Famotidine (Pepcid) 20 mg Q12 PO Last administered on 04/11/19 20:05; Admin Dose 20 MG; Start 04/10/19 at 21:00 AINSLEY NAVARRO Apr 11, 2019 22:45
[2019-04-12] VITALS (10 sets, daily range): BP systolic 128–143; BP diastolic 69–77; PULSE 61–77; RESP 18–20
[2019-04-12] MEDS: ASPIRIN (EC) 81 MG TAB PO SCH (08:31)
[2019-04-12] MEDS: FAMOTIDINE 20 MG TAB PO SCH ×2 (08:31→21:57)
--- NOTE | 2019-04-12 08:57 | PN ---
Date/Time of Note Date/Time of Note DATE: 04/12/19 TIME: 08:57 Assessment/Plan Lines/Catheters IV Catheter Type (from Nrs): Saline Lock Assessment/Plan Chief Complaint/Hosp Course No vascular intervention needed. Can follow as outpt. Will need to be on dual antiplatelet therapy Subjective 24 Hr Interval Summary Constitutional: no complaints Exam/Review of Systems Vital Signs Vitals Vital Signs Date Temp Pulse Resp B/P (MAP) Pulse Ox O2 O2 Flow FiO2 Time Delivery Rate 04/12/19 98.8 75 18 128/76 98 Room Air 07:24 (93) Intake and Output 04/11/19 04/11/19 04/12/19 1515:00 23:00 07:00 IntakeIntake Total 600 ml 700 ml 600 ml OutputOutput Total 800 ml 1000 ml 1000 ml BalanceBalance -200 ml -300 ml -400 ml Exam Constitutional: alert, oriented Psych: no complaints Head: normocephalic, atraumatic Eyes: EOMI Neck: supple, non-tender Respiratory: clear to auscultation Cardiovascular: regular rate and rhythm, nl pulses Gastrointestinal: soft, nl liver, spleen, non-tender Musculoskeletal: other (right sided weakness 3-4/5motor, sensory intact) Results Result Diagram: 04/08/1951604/08/19 0517 KING MACDONALD MD Apr 12, 2019 08:57
--- NOTE | 2019-04-12 11:52 | CONS ---
DATE OF ADMISSION: 04/07/2019 DATE OF CONSULTATION: 04/10/2019 VASCULAR SURGERY CONSULTATION Dear Doctors: Mr. Donnelly is a 69-year-old gentleman who presented to [facility] seconda ry to right-sided weakness in which he was seen at [facility] and he had left against medical advice and presented to [facility]. Patient had a head CT and echocardiog rito which were negative and became frustrated. Therefore, the patient left and came to [facility]. During his hospitalization here, he underwent an MRI of the brain which identified t he patient having acute infarct in the left frontal and parietal lobes near the vertex of the left si de of the splenium of the corpus callosum, questionable if it represented a left anterior cerebral ar lauren territory infarct. Further, the patient had a CT angiography of the neck in which there was poo r visualization of the left common carotid artery and the innominate and the nondominant left vertebr al artery. However, there was area of a 90% stenosis of the mid basilar artery. There are also feta l origins of the left and right posterior cerebral arteries. Vascular surgery consultation has been obtained for further evaluation given the patient's presentation of cerebrovascular accident. At the moment, the patient is able to answer some questions with our saw maker and denies shortness of cliff ath, chest pain, nausea, vomiting, fever or chills. He does say that he has a right upper extremity and right lower extremity weakness that appears to have improved since initial presentation last week . PAST MEDICAL HISTORY: Entails left brain stroke. SOCIAL HISTORY: Previous smoker. PAST SURGICAL HISTORY: None reported. SOCIAL HISTORY: Currently denies alcohol and substance abuse. ALLERGIES: NO KNOWN DRUG ALLERGIES. PHYSICAL EXAMINATION: GENERAL: He is alert and oriented x3. Cranial nerves II through XII are intact. HEENT: Normocephalic, atraumatic. Mucosa moist, cachectic temporal area. NECK: Supple. No carotid bruit. PULMONARY: Clear to auscultation bilaterally. CARDIOVASCULAR: S1, S2 present. ABDOMEN: Soft, nontender. RIGHT LOWER EXTREMITY: Palpable femoral pulse, nonpalpable pedal pulse. Sensory intact. Cap refill 3 seconds. For the right lower extremity, motor is 3-4 out of 5. LEFT LOWER EXTREMITY: Palpable femoral pulse, nonpalpable pedal pulse. Motor and sensory intact. C ap refill 3 seconds RIGHT UPPER EXTREMITY: Right upper extremity palpable brachial pulse. Motor 3 to 4/5. Cap refill 3 seconds. LEFT UPPER EXTREMITY: Palpable brachial pulse. Motor and sensory intact. Cap refill 3 seconds. ASSESSMENT AND PLAN: Left brain stroke: It seems the patient has findings of left brain stroke with residual right upper extremity and right lower extremity weakness that has gradually improved since his previous evaluation at [facility] about 7 days ago. It was identified patient licha morris a mid basilar focal stenosis of 90%. This is a bit unclear as the patient's carotids are not we ll visualized on a CT angiography. Would recommend for the patient to undergo a carotid ultrasound t o further evaluate his carotids. At the moment from a vascular surgery standpoint, no further interv ention will be needed. Would recommend for the patient to be optimized on dual antiplatelet therapy, aspirin, Plavix, cholesterol medication, BP control, sugar control, exercise regimen and rehabilitat ion. As to the stenosis in the mid basilar artery, no further intervention can be provided in this segment . Would recommend with medical optimization and vascular health improvement. Smoking cessation was further discussed with the patient to continue with that plan and provide infor mation was given to the patient. Discussed findings, plan and management with the patient and he understood all that is involved. A ce rtified saw maker was present. Thank you for allowing us to partake in the care of your patient. Please call with any questions. Erickson oneal will plan to have the patient follow up with us as an outpatient once he has been discharged. Dictated By: KING MARK/YUSUF Conf#: [id number] DID#: [id number] CC: JUAN SMITH MD; TJ ANDERSON;*EndCC*
--- NOTE | 2019-04-12 12:56 | CONS ---
Assessment/Plan Assessment/Plan Assessment/Plan (Recall) 69 yo M with no reported PMH who presents for evaluation of R sided weakness x 6 days, concerning for acute stroke... for which neurology is consulted. MRI brain confirms acute ischemia in the medial L frontal/parietal lobes. 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 ESR 24, RPR neg, UDS neg P: Cont ASA for stroke prevention; LDL is at goal BP and other medical management per primary PT/OT as necessary Will follow clinically, to recommend neurologic studies, as necessary Consultation Date/Type/Reason Admit Date/Time April 07, 2019 at 21:07 Type of Consult Neurology Reason for Consultation R sided weakness Requesting Provider: AINSLEY NAVARRO Date/Time of Note DATE: 04/12/19 TIME: 12:56 24 HR Interval Summary Free Text/Dictation Continues acute care. Exam/Review of Systems Exam Vitals Vital Signs Date Temp Pulse Resp B/P (MAP) Pulse Ox O2 O2 Flow FiO2 Time Delivery Rate 04/12/19 67 12:00 04/12/19 97.6 20 142/69 97 Room Air 11:20 (93) Intake and Output 04/11/19 04/11/19 04/12/19 1515:00 23:00 07:00 IntakeIntake Total 600 ml 700 ml 600 ml OutputOutput Total 800 ml 1000 ml 1000 ml BalanceBalance -200 ml -300 ml -400 ml Exam PE: Gen Appearance: No Apparent Distress HEENT: Normocephalic Cardiovascular: Regular rate Lungs: Clear bilaterally Abdomen: Soft Extremities: Dry NE: The patient was alert and oriented to self and place.. Language was normal. Fund of knowledge was limited. Pupils were equal and reactive to light. There was no afferent pupillary defect. Visual porter were normal. Funduscopic examination was limited. Extra-ocular movements were full. Ptosis was absent. There was no nystagmus. Facial sensation was normal. Face was symmetric with normal strength. Hearing was intact. Palate movements were normal. Neck strength was normal. There was normal tongue bulk and speed of movement. Tone was normal. Muscle bulk was normal. I did not see fasciculations. Arms and legs were mildly weak on the R. Vibration sensation was normal. Temperature and pinprick sensation was normal. Rapid alternating movements were normal. There was no dysmetria. There was no intention tremor. Gait was deferred due to bedrest. Arm and leg reflexes were 2+ and symmetric. Reddy's sign was absent. Plantar responses were flexor. Results Result Diagram: 04/08/1951604/08/19516 Medications Medication Current Medications IV Flush (NS 3 ml) 3 ml PER PROTOCOL IV ; Start 04/07/19 at 21:30 Ondansetron HCl (Zofran Inj) 4 mg Q6H PRN IV NAUSEA/VOMITING; Start 04/07/19 at 21:30 Acetaminophen (Tylenol Tab) 650 mg Q6H PRN PO .PAIN 1-3 OR TEMP; Start 04/07/19 at 21:30 Morphine Sulfate (morphine) 2 mg Q4H PRN IV .PAIN 7-10 Last administered on 04/11/19at 21:45; Admin Dose 2 MG; Start 04/07/19 at 21:30 Aspirin (Halfprin) 81 mg DAILY PO Last administered on 04/12/19 08:31; Admin Dose 81 MG; Start 04/10/19 at 14:00 Famotidine (Pepcid) 20 mg Q12 PO Last administered on 04/12/19 08:31; Admin Dose 20 MG; Start 04/10/19 at 21:00 CONNER MILLS NP Apr 12, 2019 12:56
[2019-04-12] MEDS: morphine 2 MG INJ IV PRN ×2 (14:53→21:57)
--- NOTE | 2019-04-12 18:07 | PN ---
Date/Time of Note Date/Time of Note DATE: 04/12/19 TIME: 17:56 Assessment/Plan VTE Prophylaxis Risk score (from Nsg)>0 risk: 4 SCD applied (from Nsg): Yes Pharmacological prophylaxis: other Lines/Catheters IV Catheter Type (from Nrsg): Saline Lock Assessment/Plan Hospital Course Patient is awake alert remains hemodynamically stable, pending ARU eval. patient's daughter requesting patient is to be evaluated by cardiology since she was told patient had myocardial infarction during hospitalization at another facility. Dr. Flynn is asked to see patient in cardiology consultation. Assessment/Plan -Acute stroke with new onset of R sided weakness. Acute infarct in the left frontal and parietal lobes per MRI. Continue aspirin. PT OT. Dr. Lim is following in neurology. ARU eval. consultation. 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 Turk is following in vascular surgery consultation. No surgical precision recommended, continue dual antiplatelet therapy. -Hypertension Further recommendations based on clinical course. Plan of care discussed with Dr. Castillo. Result Diagram: 04/08/1951604/08/19516 Exam/Review of Systems Exam Vitals Vital Signs Date Temp Pulse Resp B/P (MAP) Pulse Ox O2 O2 Flow FiO2 Time Delivery Rate 04/12/19 68 16:00 04/12/19 98.2 20 140/77 97 Room Air 15:00 (98) Intake and Output 04/11/19 04/11/19 04/12/19 1515:00 23:00 07:00 IntakeIntake Total 600 ml 700 ml 600 ml OutputOutput Total 800 ml 1000 ml 1000 ml BalanceBalance -200 ml -300 ml -400 ml Exam Constitutional: alert, oriented Cardiovascular: regular rate and rhythm Gastrointestinal: soft, non-tender Musculoskeletal: other (Right upper and lower extremity weakness) Extremities: normal pulses Neurological: nl mental status, other Medications Medication Current Medications IV Flush (NS 3 ml) 3 ml PER PROTOCOL IV ; Start 04/07/19 at 21:30 Ondansetron HCl (Zofran Inj) 4 mg Q6H PRN IV NAUSEA/VOMITING; Start 04/07/19 at 21:30 Acetaminophen (Tylenol Tab) 650 mg Q6H PRN PO .PAIN 1-3 OR TEMP; Start 04/07/19 at 21:30 Morphine Sulfate (morphine) 2 mg Q4H PRN IV .PAIN 7-10 Last administered on 04/12/19 14:53; Admin Dose 2 MG; Start 04/07/19 at 21:30 Aspirin (Halfprin) 81 mg DAILY PO Last administered on 04/12/19at 08:31; Admin Dose 81 MG; Start 04/10/19 at 14:00 Famotidine (Pepcid) 20 mg Q12 PO Last administered on 04/12/19 08:31; Admin Dose 20 MG; Start 04/10/19 at 21:00 AINSLEY NAVARRO Apr 12, 2019 18:06
[2019-04-13] VITALS (11 sets, daily range): BP systolic 116–149; BP diastolic 56–86; PULSE 57–79; RESP 16–20
[2019-04-13] MEDS: AMLODIPINE 5 MG TAB PO SCH (08:18)
[2019-04-13] MEDS: CLOPIDOGREL 75 MG TAB PO SCH (08:18)
[2019-04-13] MEDS: ASPIRIN (EC) 81 MG TAB PO SCH (08:18)
[2019-04-13] MEDS: FAMOTIDINE 20 MG TAB PO SCH ×2 (08:18→20:09)
[2019-04-13] MEDS: morphine 2 MG INJ IV PRN ×2 (12:03→17:32)
--- NOTE | 2019-04-13 12:21 | PN ---
Date/Time of Note Date/Time of Note DATE: 04/13/19 TIME: 12:21 Assessment/Plan Lines/Catheters IV Catheter Type (from [facility]): Saline Lock Baeza in Place (from [facility]): Yes Assessment/Plan Chief Complaint/Hosp Course No vascular intervention needed. Can follow as outpt. Will need to be on dual antiplatelet therapy Subjective 24 Hr Interval Summary Constitutional: no complaints Exam/Review of Systems Vital Signs Vitals Vital Signs Date Temp Pulse Resp B/P (MAP) Pulse Ox O2 O2 Flow FiO2 Time Delivery Rate 04/13/19 73 12:01 04/13/19 98.2 19 133/72 97 Room Air 11:26 (92) Intake and Output 04/12/19 04/12/19 04/13/19 1515:00 23:00 07:00 IntakeIntake Total 900 ml OutputOutput Total 650 ml BalanceBalance 250 ml KING MACDONALD MD Apr 13, 2019 12:21
--- NOTE | 2019-04-13 14:48 | CONS ---
Assessment/Plan Assessment/Plan Assessment/Plan (Recall) 69 yo M with no reported PMH who presents for evaluation of R sided weakness x 6 days, concerning for acute stroke... for which neurology is consulted. MRI brain confirms acute ischemia in the medial L frontal/parietal lobes. MRA brain is most notable for severe stenosis of mid basilar artery Echo (from [facility]) is unrevealing. ESR 24, RPR neg, UDS neg P: Cont ASA for stroke prevention; LDL is at goal BP and other medical management per primary PT/OT as necessary Will follow clinically, to recommend neurologic studies, as necessary Consultation Date/Type/Reason Admit Date/Time April 07, 2019 at 21:07 Type of Consult Neurology Reason for Consultation R sided weakness Requesting Provider: AINSLEY NAVARRO Date/Time of Note DATE: 04/13/19 TIME: 14:48 24 HR Interval Summary Free Text/Dictation Continues acute care. Exam/Review of Systems Exam Vitals Vital Signs Date Temp Pulse Resp B/P (MAP) Pulse Ox O2 O2 Flow FiO2 Time Delivery Rate 04/13/19 73 12:01 04/13/19 98.2 19 133/72 97 Room Air 11:26 (92) Intake and Output 04/12/19 04/12/19 04/13/19 1515:00 23:00 07:00 IntakeIntake Total 900 ml OutputOutput Total 650 ml BalanceBalance 250 ml Exam PE: Gen Appearance: No Apparent Distress HEENT: Normocephalic Cardiovascular: Regular rate Lungs: Clear bilaterally Abdomen: Soft Extremities: Dry NE: The patient was alert and oriented to self and place.. Language was normal. Fund of knowledge was limited. Pupils were equal and reactive to light. There was no afferent pupillary defect. Visual porter were normal. Funduscopic examination was limited. Extra-ocular movements were full. Ptosis was absent. There was no nystagmus. Facial sensation was normal. Face was symmetric with normal strength. Hearing was intact. Palate movements were normal. Neck strength was normal. There was normal tongue bulk and speed of movement. Tone was normal. Muscle bulk was normal. I did not see fasciculations. Arms and legs were weak on the R. R leg was pain-limited. Vibration sensation was normal. Temperature and pinprick sensation was normal. Rapid alternating movements were normal. There was no dysmetria. There was no intention tremor. Gait was deferred due to bedrest. Arm and leg reflexes were 2+ and symmetric. Reddy's sign was absent. Plantar responses were flexor. Results Results 24hrs Laboratory Tests Test 04/13/19 06:11 Thyroid Stimulating Hormone (TSH) 18.400 H Free Thyroxine 0.86 Medications Medication Current Medications IV Flush (NS 3 ml) 3 ml PER PROTOCOL IV ; Start 04/07/19 at 21:30 Ondansetron HCl (Zofran Inj) 4 mg Q6H PRN IV NAUSEA/VOMITING; Start 04/07/19 at 21:30 Acetaminophen (Tylenol Tab) 650 mg Q6H PRN PO .PAIN 1-3 OR TEMP; Start 04/07/19 at 21:30 Morphine Sulfate (morphine) 2 mg Q4H PRN IV .PAIN 7-10 Last administered on 04/13/19at 12:03; Admin Dose 2 MG; Start 04/07/19 at 21:30 Aspirin (Halfprin) 81 mg DAILY PO Last administered on 04/13/19at 08:18; Admin Dose 81 MG; Start 04/10/19 at 14:00 Famotidine (Pepcid) 20 mg Q12 PO Last administered on 04/13/19at 08:18; Admin Dose 20 MG; Start 04/10/19 at 21:00 Clopidogrel Bisulfate (plaVIX) 75 mg DAILY PO Last administered on 04/13/19 08:18; Admin Dose 75 MG; Start 04/13/19 at 09:00 Amlodipine Besylate (Norvasc) 5 mg DAILY PO Last administered on 04/13/19 08:18; Admin Dose 5 MG; Start 04/13/19 at 09:00 CONNER MILLS NP Apr 13, 2019 14:48
--- NOTE | 2019-04-13 19:52 | PN ---
Date/Time of Note Date/Time of Note DATE: 04/13/19 TIME: 19:45 Assessment/Plan VTE Prophylaxis Risk score (from Nsg)>0 risk: 4 SCD applied (from Nsg): Yes Pharmacological prophylaxis: other Lines/Catheters IV Catheter Type (from Nrsg): Saline Lock Urinary Cath still in place: Yes Reason Cath still needed: urinary retention Assessment/Plan Hospital Course Patient is awake alert remains hemodynamically stable, pending ARU eval. Assessment/Plan -Acute stroke with new onset of R sided weakness. Acute infarct in the left frontal and parietal lobes per MRI. Continue aspirin. PT OT. Dr. Lim is following in neurology. ARU eval. consultation. 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 Turk is following in vascular surgery consultation. No surgical precision recommended, continue dual antiplatelet therapy. -Hypertension. Dr. Flynn is asked to see patient in cardiology consultation. Further recommendations based on clinical course. Plan of care discussed with Dr. Castillo. Results 24hrs Laboratory Tests Test 04/13/19 06:11 Thyroid Stimulating Hormone (TSH) 18.400 H Free Thyroxine 0.86 Exam/Review of Systems Exam Vitals Vital Signs Date Temp Pulse Resp B/P (MAP) Pulse Ox O2 O2 Flow FiO2 Time Delivery Rate 04/13/19 70 16:01 04/13/19 98.2 20 149/86 98 Room Air 15:10 (107) Intake and Output 04/12/19 04/12/19 04/13/19 1515:00 23:00 07:00 IntakeIntake Total 900 ml OutputOutput Total 650 ml BalanceBalance 250 ml Exam Constitutional: alert, oriented Cardiovascular: regular rate and rhythm Gastrointestinal: soft, non-tender Musculoskeletal: other (Right upper and lower extremity weakness) Extremities: normal pulses Neurological: nl mental status, other Results Results 24hrs Laboratory Tests Test 04/13/19 06:11 Thyroid Stimulating Hormone (TSH) 18.400 H Free Thyroxine 0.86 Medications Medication Current Medications IV Flush (NS 3 ml) 3 ml PER PROTOCOL IV ; Start 04/07/19 at 21:30 Ondansetron HCl (Zofran Inj) 4 mg Q6H PRN IV NAUSEA/VOMITING; Start 04/07/19 at 21:30 Acetaminophen (Tylenol Tab) 650 mg Q6H PRN PO .PAIN 1-3 OR TEMP; Start 04/07/19 at 21:30 Morphine Sulfate (morphine) 2 mg Q4H PRN IV .PAIN 7-10 Last administered on 04/13/19 17:32; Admin Dose 2 MG; Start 04/07/19 at 21:30 Aspirin (Halfprin) 81 mg DAILY PO Last administered on 04/13/19 08:18; Admin Dose 81 MG; Start 04/10/19 at 14:00 Famotidine (Pepcid) 20 mg Q12 PO Last administered on 04/13/19 08:18; Admin Dose 20 MG; Start 04/10/19 at 21:00 Clopidogrel Bisulfate (plaVIX) 75 mg DAILY PO Last administered on 04/13/19 08:18; Admin Dose 75 MG; Start 04/13/19 at 09:00 Amlodipine Besylate (Norvasc) 5 mg DAILY PO Last administered on 04/13/19 08:18; Admin Dose 5 MG; Start 04/13/19 at 09:00 AINSLEY NAVARRO Apr 13, 2019 19:52
[2019-04-14] VITALS: BP 140/68; PULSE 59; PULSE 63; RESP 16
[2019-04-14 04:00] VITALS: BP 129/75; PULSE 55; PULSE 66; RESP 16
--- NOTE | 2019-04-14 04:46 | PN ---
Date/Time of Note Date/Time of Note DATE: 04/14/19 TIME: 04:46 Assessment/Plan VTE Prophylaxis Risk score (from Ns)>0 risk: 4 SCD applied (from [facility] Yes SCD contraindicated: other Pharmacological prophylaxis: other Pharm contraindication: other Lines/Catheters IV C[facility]ter Type (from [facility]): Saline Lock Urinary Cath still in place: Yes Reason Cath still needed: urinary retention Assessment/Plan Assessment/Plan -Acute stroke with new onset of R sided weakness. - Acute infarct in the left frontal and parietal lobes per MRI. Continue aspirin. - PT OT. Dr. Lim is following in neurology. ARU eval. consultation. 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 Turk is following in vascular surgery consultation. No surgical precision recommended, continue dual antiplatelet therapy. -Hypertension. Dr. Flynn is asked to see patient in cardiology consultation. Further recommendations based on clinical course. Plan of care discussed with Dr. Castillo. Results 24hrs Laboratory Tests Test 04/13/19 06:11 Thyroid Stimulating Hormone (TSH) 18.400 H Free Thyroxine 0.86 Subjective 24 Hr Interval Summary Free Text/Dictation - nad - afebrile - no events reported overnight - possible SNF transfer today dw staff ENT: no complaints Respiratory: no complaints Cardiovascular: no complaints Gastrointestinal: no complaints Musculoskeletal: no complaints Neurologic: focal-weakness Psychological: nl mood/affect Exam/Review of Systems Exam Vitals Vital Signs Date Temp Pulse Resp B/P (MAP) Pulse Ox O2 O2 Flow FiO2 Time Delivery Rate 04/14/19 97.5 66 16 129/75 95 04:00 (93) 04/13/19 Room Air 15:10 Intake and Output 04/13/19 04/13/19 04/14/19 1515:00 23:00 07:00 IntakeIntake Total 1000 ml OutputOutput Total 500 ml BalanceBalance 500 ml Constitutional: alert, well developed Psych: anxiety Eyes: nl lids, nl sclera ENMT: nl external ears & nose Respiratory: clear to auscultation Cardiovascular: nl pulses, other (s1s2) Gastrointestinal: soft, non-tender Musculoskeletal: nl extremities to inspection Neurological: focal weakness (right sided weakness) Lymph: nontender Results Results 24hrs Laboratory Tests Test 04/13/19 06:11 Thyroid Stimulating Hormone (TSH) 18.400 H Free Thyroxine 0.86 Medications Medication Current Medications IV Flush (NS 3 ml) 3 ml PER PROTOCOL IV ; Start 04/07/19 at 21:30 Ondansetron HCl (Zofran Inj) 4 mg Q6H PRN IV NAUSEA/VOMITING; Start 04/07/19 at 21:30 Acetaminophen (Tylenol Tab) 650 mg Q6H PRN PO .PAIN 1-3 OR TEMP; Start 04/07/19 at 21:30 Morphine Sulfate (morphine) 2 mg Q4H PRN IV .PAIN 7-10 Last administered on 04/13/19at 17:32; Admin Dose 2 MG; Start 04/07/19 at 21:30 Aspirin (Halfprin) 81 mg DAILY PO Last administered on 04/13/19 08:18; Admin Dose 81 MG; Start 04/10/19 at 14:00 Famotidine (Pepcid) 20 mg Q12 PO Last administered on 04/13/19 20:09; Admin Dose 20 MG; Start 04/10/19 at 21:00 Clopidogrel Bisulfate (plaVIX) 75 mg DAILY PO Last administered on 04/13/19at 08:18; Admin Dose 75 MG; Start 04/13/19 at 09:00 Amlodipine Besylate (Norvasc) 5 mg DAILY PO Last administered on 04/13/19 08:18; Admin Dose 5 MG; Start 04/13/19 at 09:00 Levothyroxine Sodium (Synthroid) 50 mcg DAILY@06 PO ; Start 04/14/19 at 06:00 LILIAN CARDOZA Apr 14, 2019 04:46
[2019-04-14] MEDS ORDERED: LEVOTHYROXINE 50 MCG TAB PO SCH (06:00)
[2019-04-14 07:18] VITALS: BP 135/70; PULSE 63; RESP 18
[2019-04-14 08:00] VITALS: PULSE 69
[2019-04-14] MEDS: CLOPIDOGREL 75 MG TAB PO SCH (08:36)
[2019-04-14] MEDS: AMLODIPINE 5 MG TAB PO SCH (08:36)
[2019-04-14] MEDS: FAMOTIDINE 20 MG TAB PO SCH (08:37)
[2019-04-14] MEDS: ASPIRIN (EC) 81 MG TAB PO SCH (08:37)
[2019-04-14 11:21] VITALS: BP 123/66; PULSE 65; RESP 18
[2019-04-14 12:00] VITALS: PULSE 70
--- NOTE | 2019-04-14 12:35 | CONS ---
Assessment/Plan Assessment/Plan Assessment/Plan (Recall) 69 yo M with no reported PMH who presents for evaluation of R sided weakness x 6 days, concerning for acute stroke... for which neurology is consulted. MRI brain confirms acute ischemia in the medial L frontal/parietal lobes. MRA brain is most notable for severe stenosis of mid basilar artery Echo (from [facility]) is unrevealing. ESR 24, RPR neg, UDS neg P: Cont ASA for stroke prevention; LDL is at goal BP and other medical management per primary PT/OT as necessary Will follow clinically, to recommend neurologic studies, as necessary Consultation Date/Type/Reason Admit Date/Time April 07, 2019 at 21:07 Type of Consult Neurology Reason for Consultation R sided weakness Requesting Provider: AINSLEY NAVARRO Date/Time of Note DATE: 04/14/19 TIME: 12:35 24 HR Interval Summary Free Text/Dictation Continues acute care. Exam/Review of Systems Exam Vitals Vital Signs Date Temp Pulse Resp B/P (MAP) Pulse Ox O2 O2 Flow FiO2 Time Delivery Rate 04/14/19 98.4 65 18 123/66 97 Room Air 11:21 (85) Intake and Output 04/13/19 04/13/19 04/14/19 1515:00 23:00 07:00 IntakeIntake Total 1000 ml OutputOutput Total 500 ml BalanceBalance 500 ml Exam PE: Gen Appearance: No Apparent Distress HEENT: Normocephalic Cardiovascular: Regular rate Lungs: Clear bilaterally Abdomen: Soft Extremities: Dry NE: The patient was alert and oriented to self and place.. Language was normal. Fund of knowledge was limited. Pupils were equal and reactive to light. There was no afferent pupillary defect. Visual porter were normal. Funduscopic examination was limited. Extra-ocular movements were full. Ptosis was absent. There was no nystagmus. Facial sensation was normal. Face was symmetric with normal strength. Hearing was intact. Palate movements were normal. Neck strength was normal. There was normal tongue bulk and speed of movement. Tone was normal. Muscle bulk was normal. I did not see fasciculations. Arms and legs were weak on the R. R leg was pain-limited. Vibration sensation was normal. Temperature and pinprick sensation was normal. Rapid alternating movements were normal. There was no dysmetria. There was no intention tremor. Gait was deferred due to bedrest. Arm and leg reflexes were 2+ and symmetric. Reddy's sign was absent. Plantar responses were flexor. Results Result Diagram: 04/14/1921 04/14/19 0521 Results 24hrs Laboratory Tests Test 04/14/19 05:21 White Blood Count 9.6 Red Blood Count 4.56 L Hemoglobin 13.2 L Hematocrit 40.1 L Mean Corpuscular Volume 87.9 Mean Corpuscular Hemoglobin 28.9 L Mean Corpuscular Hemoglobin Concent 32.9 Red Cell Distribution Width 13.4 Platelet Count 414 # Mean Platelet Volume 9.4 Immature Granulocytes % 0.300 Neutrophils % 68.6 Lymphocytes % 17.8 Monocytes % 9.5 Eosinophils % 3.2 Basophils % 0.6 Nucleated Red Blood Cells % 0.0 Immature Granulocytes # 0.030 Neutrophils # 6.6 Lymphocytes # 1.7 Monocytes # 0.9 Eosinophils # 0.3 Basophils # 0.1 Nucleated Red Blood Cells # 0.0 Sodium Level 140 Potassium Level 4.4 Chloride Level 102 Carbon Dioxide Level 31 Anion Gap 7 Blood Urea Nitrogen 20 Creatinine 0.64 Est Glomerular Filtrat Rate mL/min > 60 Glucose Level 112 Calcium Level 9.1 Medications Medication Current Medications IV Flush (NS 3 ml) 3 ml PER PROTOCOL IV ; Start 04/07/19 at 21:30 Ondansetron HCl (Zofran Inj) 4 mg Q6H PRN IV NAUSEA/VOMITING; Start 04/07/19 at 21:30 Acetaminophen (Tylenol Tab) 650 mg Q6H PRN PO .PAIN 1-3 OR TEMP; Start 04/07/19 at 21:30 Morphine Sulfate (morphine) 2 mg Q4H PRN IV .PAIN 7-10 Last administered on 04/13/19at 17:32; Admin Dose 2 MG; Start 04/07/19 at 21:30 Aspirin (Halfprin) 81 mg DAILY PO Last administered on 04/14/19at 08:37; Admin Dose 81 MG; Start 04/10/19 at 14:00 Famotidine (Pepcid) 20 mg Q12 PO Last administered on 04/14/19 08:37; Admin Dose 20 MG; Start 04/10/19 at 21:00 Clopidogrel Bisulfate (plaVIX) 75 mg DAILY PO Last administered on 04/14/19at 08:36; Admin Dose 75 MG; Start 04/13/19 at 09:00 Amlodipine Besylate (Norvasc) 5 mg DAILY PO Last administered on 04/14/19at 08:36; Admin Dose 5 MG; Start 04/13/19 at 09:00 Levothyroxine Sodium (Synthroid) 50 mcg DAILY@06 PO Last administered on 04/14/19at 05:36; Admin Dose 50 MCG; Start 04/14/19 at 06:00 CONNER MILLS NP Apr 14, 2019 12:35
--- NOTE | 2019-04-14 22:24 | DS ---
Date/Time of Note Date/Time of Note DATE: 04/14/19 TIME: 22:24 Discharge Summary Admission/Discharge Info Admit Date/Time April 07, 2019 at 21:07 Discharge Date/Time Apr 14, 2019 at 14:56 Discharge Diagnosis -Acute stroke with new onset of R sided weakness. - Acute infarct in the left frontal and parietal lobes per MRI. 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 Hospital Course 69years old male patient was seen at [facility] emergency room after signing out AMA at [facility]. Patient was admitted at [facility] 7 days ago with right sided weakness. Head CT and echocardiogram which was negative. His family brought him here. Patient was evaluated by Neurology . When stable, patient is discharged in a st able condition. Constitutional: NAD, VSS, alert, well developed Psych: anxiety Eyes: nl lids, nl sclera ENMT: nl external ears & nose Respiratory: clear to auscultation Cardiovascular: nl pulses, other (s1s2) Gastrointestinal: soft, non-tender Musculoskeletal: nl extremities to inspection Neurological: focal weakness (right sided weakness) Lymph: nontender Dw Dr Castillo [place] Meds Active Scripts Cephalexin* (Keflex*) 500 Mg Capsule, 500 MG PO QID for 5 Days, CAP Prov:OCHOA,OBDULIO 01/18/19 Naproxen* (Naprosyn*) 500 Mg Tablet, 500 MG PO BID for 10 Days, #20 TAB Prov:OBDULIO PACKER 01/18/19 Naproxen* (Naprosyn*) 500 Mg Tablet, 500 MG PO BID PRN for PAIN AND/OR INFLAMMATION, #30 TAB Prov:PORSCHE SHAFER PA-C 09/01/18 Primary Care Provider Care Physician No Primary Time spent on discharge: < 30 minutes Pending Labs Laboratory Tests Test 04/14/19 05:21 White Blood Count 9.6 10^3/ul (4.8-10.8) Red Blood Count 4.56 10^6/ul (4.70-6.10) Hemoglobin 13.2 g/dl (14.0-18.0) Hematocrit 40.1 % (42.0-52.0) Mean Corpuscular Volume 87.9 fl (82.0-101.0) Mean Corpuscular Hemoglobin 28.9 pg (29.0-33.0) Mean Corpuscular Hemoglobin Concent 32.9 g/dl (32.0-37.0) Red Cell Distribution Width 13.4 % (11.5-14.5) Platelet Count 414 10^3/UL (140-415) Mean Platelet Volume 9.4 fl (7.4-10.4) Immature Granulocytes % 0.300 % (0.001-0.429) Neutrophils % 68.6 % (39.0-77.0) Lymphocytes % 17.8 % (15.0-51.0) Monocytes % 9.5 % (0.0-11.0) Eosinophils % 3.2 % (0.0-7.0) Basophils % 0.6 % (0.0-2.0) Nucleated Red Blood Cells % 0.0 /100WBC (0.0-0.0) Immature Granulocytes # 0.030 10^3/ul (0.0-0.031) Neutrophils # 6.6 10^3/ul (1.6-7.5) Lymphocytes # 1.7 10^3/ul (0.8-2.9) Monocytes # 0.9 10^3/ul (0.3-0.9) Eosinophils # 0.3 10^3/ul (0.0-0.5) Basophils # 0.1 10^3/ul (0.0-0.1) Nucleated Red Blood Cells # 0.0 10^3/ul (0.0-0.0) Sodium Level 140 mmol/L (135-144) Potassium Level 4.4 mmol/L (3.5-5.1) Chloride Level 102 mmol/L (97-110) Carbon Dioxide Level 31 mmol/L (21-31) Anion Gap 7 (5-13) Blood Urea Nitrogen 20 mg/dl (7-20) Creatinine 0.64 mg/dl (0.61-1.24) Est Glomerular Filtrat Rate mL/min > 60 mL/min (>60) Glucose Level 112 mg/dl (70-220) Calcium Level 9.1 mg/dl (8.4-10.2) LILIAN CARDOZA Apr 14, 2019 22:24
--- NOTE | 2019-04-14 22:26 | PDOCDIS ---
Discharge Instructions CONDITION [id number] Patient Condition: [id number] Stable HOME CARE INSTRUCTIONS: [id number] Diet Instructions: [id number] ACTIVITY: [id number] Activity Restrictions: [id number] Slowly Increase Activity Rest between Activity Avoid heavy lifting [id number] Bathing Restrictions: Koude2s Sponge Bath FOLLOW UP/APPOINTMENTS Follow-up Plan Call 911or send to ER/ nearest hospital if syptoms get worse. Gary Castillo/staff. LILIAN CARDOZA Apr 14, 2019 22:26
== END 2019-04-14 14:56 | DRG 65 ==
LOC: E/R 19:59 → 6WM 21:07 → CANRESERV 21:49
PROVIDERS: ADMIT Internal Medicine; ATTEND Internal Medicine
DX: I63.9 Cerebral infarction, unspecified (principal); G81.91 Hemiplegia, unspecified affecting right dominant side; I65.1 Occlusion and stenosis of basilar artery; I10 Essential (primary) hypertension; R29.707 NIHSS score 7; Z87.891 Personal history of nicotine dependence
CPT/HCPCS: 36415; 70450; 70496; 70498; 70546; 70551; 71045; 80048; 80053; 80061; 80307; 81001; 83036; 83605; 84439; 84443; 84484; 85025; 85610; 85651; 85730; 86592; 87081; 92526; 92610; 93005; 93880; 97110; 97163; 97165; 97530; 97535; J2270; Q9967